=== PATIENT | male | born 1985 | race Hispanic/Latino ===

== ENCOUNTER 2025-03-02 12:17 | Emergency (ER) | payer SELFPAY ==
[2025-03-02 12:18] VITALS: BP 153/97
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
== END 2025-03-02 14:03 | disposition home or self-care (01) ==
LOC: EMR 12:17
PROVIDERS: EMERGENCY PHYSICIAN Emergency Medicine
DX: S62.612A Displaced fracture of proximal phalanx of right middle finger, initial encounter for closed fracture (principal); S61.212A Laceration without foreign body of right middle finger without damage to nail, initial encounter; W23.2XXA Caught, crushed, jammed or pinched between a moving and stationary object, initial encounter; R03.0 Elevated blood-pressure reading, without diagnosis of hypertension
CPT/HCPCS: 99283; 12001; 73130